=== PATIENT | male | born 1955 | race Caucasian/White ===

== ENCOUNTER 2025-03-07 13:39 | Emergency (ER) | payer OTHER, SELFPAY ==
[2025-03-07 13:44] VITALS: BP 162/88; PULSE 80; RESP 20; TEMP 37; O2SAT 98; BMI 20.7
--- NOTE | 2025-03-07 13:52 | DI.RAD.S_ITS ---
PROCEDURE: XR CHEST 1V INDICATIONS: Chest Pain TECHNIQUE: One view of the chest was acquired. COMPARISON: None. FINDINGS: Surgical changes and devices: None. Lungs and pleura: Lungs are clear. No pleural effusions or pneumothorax. Mediastinum: Mediastinal contours appear normal. Heart size is normal. Bones and chest wall: No suspicious bony lesions. Overlying soft tissues appear unremarkable. IMPRESSION: No acute pulmonary process. Dictated by: Mckayla Thomas M.D. on 03/07/2025 at 14:18 Approved by: Mckayla Thomas M.D. on 03/07/2025 at 14:18
--- NOTE | 2025-03-07 13:52 | EKG_ITS ---
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
[2025-03-07] MEDS: ASPIRIN 81 MG CHEW TAB 324 MG PO (14:17)
[2025-03-07 14:19] VITALS: BP 142/84; PULSE 79; O2SAT 98
[2025-03-07 14:27] LABS: INR 1.0 (0.9-1.3); Prothrombin Time 11.1 SECONDS (9.4-12.5)
[2025-03-07 14:30] LABS: PTT Partial Thromboplastin Tim 26 SECONDS (25.1-36.5)
--- NOTE | 2025-03-07 14:30 | PC.NURSE ---
PT says that he wants to go home. Dr Wesley notified.
[2025-03-07 14:31] LABS: Alanine Aminotransferase 8 IU/L (<50); Albumin 4.7 g/dL (3.5-5.0); Albumin Globulin Ratio 1.2 (1.0-2.8); Alkaline Phosphatase 80 U/L (38-126); Blood Urea Nitrogen 14 mg/dL (9-20); Calcium 9.2 mg/dL (8.4-10.2); Carbon Dioxide 28 mmol/L (22-32); Chloride 98 mmol/L (98-107); Creatine Kinase 90 U/L (55-170); Estimated Glomerular Filt Rate > 60 mL/min (>60); Globulin 3.8 g/dL (1.7-4.1); Glucose 122 mg/dL (70-99); Lipase 85 U/L (23-300); Magnesium 2.1 mg/dL (1.6-2.3); Potassium 3.8 mmol/L (3.4-5.1); Sodium 136 mmol/L (137-145); Total Protein 8.5 g/dL (6.3-8.2)
[2025-03-07 14:32] LABS: HEMOLYSIS 68 (0-50)
[2025-03-07 14:35] LABS: Add Manual Diff / Slide Review YES; Hematocrit 44.2 % (41-53); Hemoglobin 14.9 g/dL (13.5-17.5); Mean Corpuscular HGB Conc 33.7 % (30-36); Mean Corpuscular Hemoglobin 30.6 PG (26-34); Mean Corpuscular Volume 90.8 fL (80-100); Platelet Count 248 X10^3/uL (150-400)
--- NOTE | 2025-03-07 14:36 | ED_ITS ---
HPI - Chest Pain General Chief Complaint: Chest Pain Stated Complaint: Heart is hurting, Is on Hospice, Time Seen by Provider: 03/07/25 14:08 Source: patient Mode of arrival: Ambulatory Limitations: no limitations History of Present Illness HPI narrative: 70-year-old male who is home on hospice come into the ER who is having some sharp chest pain on the left side as radiating down the left side of his body. Upon examination, his chest pain has resolved. Related Data Allergies Allergy/AdvReac Type Severity Reaction Status Date / Time venom-honey bee Allergy Severe Anaphylaxis Verified 03/07/25 13:50 Review of Systems Review of Systems ROS Unobtainable: All systems reviewed & are unremarkable except as noted in HPI and below Patient History Social History Smoking Status: Former smoker Smoking Status: Former smoker Exam Narrative Exam Narrative: General: Patient appears to be in no acute distress, acting appropriately Head: normocephalic, atraumatic, HEENT: Pupils equal round reactive, eyes tracking well, neck supple, no JVD Heart: regular rate and rhythm, no murmurs, rubs, or gallops heard Lungs: clear to auscultation, no adventitious sounds Abdomen: soft , nontender, nondistended, positive bowel sounds Neurological: no focal neurological signs, moving all extremities well, alert and oriented x3, Psych: good judgment ,good insight, mood is normal. Initial Vital Signs Initial Vital Signs: Vital Signs Temperature 98.6 F 03/07/25 13:44 Pulse Rate 80 03/07/25 13:44 Respiratory Rate 20 03/07/25 13:44 Blood Pressure 162/88 H 03/07/25 13:44 Pulse Oximetry 98 03/07/25 13:44 Oxygen Delivery Method Room Air 03/07/25 13:44 Course Course Course Narrative: I went to go examined the patient, and was told that the patient wanted to leave against medical advice. When I arrived to see the patient less than an hour after arrival, his chest pain has dissipated. Orders Ordered: ED Orders 03/07/25 13:52 XR chest 1V Stat EKG-12 Lead Stat 03/07/25 14:10 Complete Blood Count AUTO DIFF Stat Comprehensive Metabolic Panel Stat Lipase Stat Magnesium Stat NT-proBNP (BNP-Adult 18+) Stat PTT Partial Thromboplastin Ariel Stat Prothrombin Time INR Stat Troponin & CK Cardiac Panel Stat Discontinued Medications Aspirin (Aspirin 81 Mg Chew Tab) 324 mg PO NOW ONE Stop: 03/07/25 13:53 Last Admin: 03/07/25 14:17 Dose: 324 mg Documented By: CATHIE Vital Signs Vital signs: Vital Signs - 8 hr 03/07/25 13:44 03/07/25 14:19 03/07/25 14:19 Temperature 98.6 F Pulse Rate 80 79 Respiratory Rate 20 Blood Pressure 162/88 H 142/84 H Pulse Oximetry 98 98 Oxygen Delivery Method Room Air MDM - Chest Pain Differential Diagnosis Differential diagnosis: Likely stable angina, unstable angina pectoris, atypical chest pain and st elevation myocardial infarction Lab Data 03/07/25 14:10 03/07/25 14:10 Labs: Lab Results 03/07/25 Range/Units 14:10 WBC 10.4 (4.5-11.0) X10^3/uL RBC 4.87 (4.5-5.9) X10^6/uL Hgb 14.9 (13.5-17.5) g/dL Hct 44.2 (41-53) % MCV 90.8 (80-100) fL MCH 30.6 (26-34) PG MCHC 33.7 (30-36) % RDW 13.9 (11.6-14.8) % Plt Count 248 (150-400) X10^3/uL Neut % (Auto) Not Reportable Lymph % (Auto) Not Reportable [place] % (Auto) Not Reportable Eos % (Auto) Not Reportable Baso % (Auto) Not Reportable Lymph # (Auto) Not Reportable [place] # (Auto) Not Reportable Baso # (Auto) Not Reportable PT 11.1 (9.4-12.5) SECONDS INR 1.0 (0.9-1.3) APTT 26 (25.1-36.5) SECONDS Sodium 136 L (137-145) mmol/L Potassium 3.8 (3.4-5.1) mmol/L Chloride 98 (98-107) mmol/L Carbon Dioxide 28 (22-32) mmol/L BUN 14 (9-20) mg/dL Creatinine 0.93 (0.66-1.25) mg/dL Estimated GFR > 60 (>60) mL/min BUN/Creatinine Ratio 15.1 (6-22) Glucose 122 H (70-99) mg/dL Calcium 9.2 (8.4-10.2) mg/dL Magnesium 2.1 (1.6-2.3) mg/dL Total Bilirubin 1.0 (0.2-1.3) mg/dL AST 26 (17-59) IU/L ALT 8 (<50) IU/L Alkaline Phosphatase 80 (38-126) U/L Total Creatine Kinase 90 (55-170) U/L Total Protein 8.5 H (6.3-8.2) g/dL Albumin 4.7 (3.5-5.0) g/dL Globulin 3.8 (1.7-4.1) g/dL Albumin/Globulin Ratio 1.2 (1.0-2.8) Lipase 85 (23-300) U/L ECG Data Interpretation: Patient has a left axis deviation, sinus rhythm frequent PVCs, rate of 75 beats per minute, Previous EKG from 2011 showed a left bundle branch block and sinus rhythm. MDM Narrative Medical decision making narrative: The patient's cardiac workup was not complete before he demanded to be discharged. The patient will leave against medical advice at this time. Discharge Plan Departure Patient Disposition: Left Against Medical Advice Clinical Impression: Atypical chest pain Instructions: DI for Atypical Chest Pain Activity Restrictions/Additional Instructions: You are leaving against medical advice at this time but please return if your chest pain gets worse or returns. Stand Alone Forms: Patient Portal/API, Against Med. Advice ([place])
[2025-03-07 14:43] LABS: NT-proBNP (BNP-Adult 18+) 1960 pg/mL (<125); Troponin I < 0.012 ng/mL (0.01-0.034)
[2025-03-07 14:55] LABS: Lymphocytes Percent Manual 7.0 % (25-45); Monocytes Percent Manual 12.0 % (2-11); Neutrophils Absolute Manual 8424 /uL (3000-5900); Segmented Neutrophils Percent 81.0 % (38-70); Total Cells Counted 100
[2025-03-07 14:58] LABS: RBC Morphology Normal Morphology
== END 2025-03-07 14:42 | disposition left against medical advice (07) ==
PROVIDERS: Emergency Provider Family Medicine
DX: R07.89 Other chest pain (principal)
CPT/HCPCS: 36415; 71045; 80053; 82550; 83690; 83735; 83880; 84484; 85007; 85025; 85610; 85730; 93005; 99284